=== PATIENT | male | born 1950 | race African-American/Black ===

== ENCOUNTER 2018-02-25 22:31 | Emergency (ER) | payer OTHER ==
--- NOTE | 2018-02-25 23:33 | RAD ---
RIGHT SHOULDER THREE VIEW: 02/25/18 HISTORY: Trauma. Fall. COMPARISON: None. FINDINGS: No acute fracture or malalignment. Moderate degenerative disease right acromioclavicular joint. Moder ate degenerative changes of the glenohumeral joint. IMPRESSION: Degenerative changes. No acute abnormality. POS: [facility]
--- NOTE | 2018-02-25 23:46 | CT ---
CT BRAIN WITHOUT CONTRAST: 02/25/18 HISTORY: Injury. Fall. COMPARISON: None. FINDINGS: No acute territorial infarct. No acute hemorrhage. Large right frontal forehead soft tissue contusion . Moderate atrophy and microvascular ischemic changes. The globes are intact. The calvarium is intact. Extensive mucosal sinus thickening left maxillary sinus. Mastoids are clear. IMPRESSION: Large forehead soft tissue contusion and hematoma. No acute intracranial abnormality. If the patient is on blood thinners or is at high risk for a parenchymal contusion, a followup CT in six hours would be recommended to evaluate for a late blooming contusion/hemorrhage. POS: [facility]
--- NOTE | 2018-02-25 23:55 | CT ---
CT CERVICAL SPINE WITHOUT CONTRAST 02/25/18 HISTORY: Trauma. Fall. COMPARISON: None. FINDINGS: Dysplastic changes of the mandibular condyles bilaterally. The odontoid process is intact. The occipi jacquie condyles are intact. Mastoids are clear. Skull base is intact. There is degenerative changes of C4-C7 with end plate height loss and sclerosis as well as erosions o f the end plates. Mild facet changes. No acute fracture or malalignment of the cervical spine. Mild scarring of the lung apices. Thyroid is unremarkable. No adenopathy. IMPRESSION: No acute displaced fracture of the cervical spine. POS: [facility]
[2018-02-26] MEDS ORDERED: Bacitracin Zinc 1 Packet ONE (01:59)
--- NOTE | 2018-02-26 07:06 | CT ---
CT FACE WITHOUT CONTRAST: HISTORY: Slip and fall, trauma. COMPARISON: None. FINDINGS: There is a large right forehead soft tissue contusion and hematoma with a small focus of gas. No fro ntal hematoma is appreciated. Medial orbital duran, lateral orbital duran, nasal bones, osseous nasal septum are intact. The yisel bular condyles are dysplastic. The patient is edentulous with wires to the left mandibular symphysis . Chronic mucosal sinus thickening in the left maxillary sinus. Orbital floors and orbital roofs are i ntact. IMPRESSION: Right forearm contusion and soft tissue gas. No fracture of the face. POS: [facility]
== END 2018-02-26 02:26 | disposition home or self-care (01) ==
LOC: ERS 22:31
DX: S00.83XA Contusion of other part of head, initial encounter (principal); W01.0XXA Fall on same level from slipping, tripping and stumbling without subsequent striking against object, initial encounter
CPT/HCPCS: 70450; 70486; 72125; 93005

== ENCOUNTER 2019-12-31 21:33 | Inpatient (IN) | payer MEDICARE, MEDICAID ==
[2019-12-31] MEDS ORDERED: Senokot S 8.6-50 MG TAB PO PRN (23:22)
[2019-12-31] MEDS ORDERED: Aspirin 325 MG TAB PO SCH (23:45)
--- NOTE | 2020-01-01 01:25 | HP ---
PRIMARY CARE PHYSICIAN: Dr. Newby. CHIEF COMPLAINT: Left-sided weakness, slurred speech, and left-sided droop. HISTORY OF PRESENT ILLNESS: Mr. Gomes is a very pleasant 69-year-old man who was a transfer to [facility] from [facility], where he was seen for evaluation of motor deficits to the left arm, left leg, and slurred speech. They were able to talk to his sister and his mother and his mom reports that he took a nap at 1400 and was normal, but when he woke up at 1600, she realized that he was slurring his speech and not moving his left side. He also urinated on himself. He reports he has a past medical history of hypertension and denies history of coronary artery disease or stroke in the past. His NIH at [place] was 13. They did a CT scan of the brain which was with no acute findings and a CTA which was also with no acute findings. ER physician at [place] did talk to Dr. Reid of Neurosurgery who also looked at the CT scans and assessed that no immediate mechanical interventions were needed. As he was outside of the window, he was not a candidate for tPA. He was evaluated, given an aspirin and then transferred to [facility] for admission and further workup. He will be admitted to the stroke unit for further testing and evaluation. REVIEW OF SYSTEMS: Patient reports dysphagia, reports focal weakness on his left side. Reports speech changes. He denies any abdominal pain, nausea, vomiting, diarrhea, fever, or chills. All systems reviewed and are negative unless mentioned in the HPI. PAST MEDICAL HISTORY: Pertinent for hypertension. PAST SURGICAL HISTORY: None. PSYCHIATRIC HISTORY: None. SOCIAL HISTORY: He drinks alcohol weekly. Drinks about a beer a day and does smoke about two cigarettes a day. FAMILY HISTORY: Noncontributory. ALLERGIES: NONE. MEDICATIONS: These still need to be reconciled. Per the ER record, he takes lisinopril 10 mg p.o. daily. PHYSICAL EXAMINATION: VITAL SIGNS: Blood pressure 153/102, pulse is 83, respirations 17, and patient is 100% on room air. CONSTITUTIONAL: Patient appears nontoxic. He does have a droop on the left side of his face. HEENT: His head is atraumatic and normocephalic. Eyes; pupils are equally round and reactive to light. ENT; mouth exam is normal. Mucous membranes are moist. NECK: No contusions or abrasions noted. Trachea is midline. RESPIRATORY/CHEST: Breath sounds are clear. Chest movement is symmetrical. CARDIOVASCULAR: Regular rate and rhythm. Heart sounds are normal. ABDOMEN: Nontender. Bowel sounds are heard. BACK: Normal range of motion. No tenderness. EXTREMITIES: Upper extremity, he has range of motion that is limited on the left, normal on the right. Sensation decreased on the left. Radial pulses are normal bilaterally. Lower extremity, decreased range of motion and strength on the left, normal on the right. Pedal pulses are normal. NEUROLOGIC: Speech is slurred. Pronator drift on the left, weakness of the left arm, weakness to the left hand, weakness also to the left leg. SKIN: Warm and dry, normal in color. LABORATORY DATA: EKG; nonspecific ST changes. [place] is right. Normal sinus rhythm, beats per minute 94. White blood cell count 7.1, hemoglobin 15.2, hematocrit is 44.9, and platelet count is 266. Coagulation studies within normal limits. Chemistry; sodium 134, potassium 3.6, chloride 102, carbon dioxide 19, gap is 17, BUN is 6, and creatinine is 0.95. Troponin x3 are undetectable, 0.029, 0.039. Globulin 3.7. PLAN/ASSESSMENT: 1. Left-sided weakness, slurred speech, left-sided droop. NIH scale 13. CT of the brain and CTA head and neck within normal limits. No acute findings were found. We will obtain an echocardiogram and order an MRI without contrast. We will ask PT/OT, Speech to evaluate. Considering the patient has new deficits which are not improving, we will ask Neurology to consult. Aspirin 325 was given in the ER in [place]. We will continue that daily. We will add Lipitor 80 mg p.o. at bedtime. 2. GI and deep venous thrombosis prophylaxis started. 3. History of hypertension. His medications need to be reconciled. We will restart once permissive hypertension is relaxed. We will get the results of the MRI. 4. Case was discussed with Dr. Rutherford, who agrees with plan. 5. Hospital course dependent on clinical findings. Job ID: [id number]
[2020-01-01] MEDS: Acetaminophen 325 MG TAB PO PRN ×3 (01:43→20:59)
[2020-01-01 01:52] LABS: Troponin I 0.039 ng/mL (< 0.028)
[2020-01-01 02:25] VITALS: BMI 22.4
[2020-01-01 05:01] LABS: #Eosinphils 0.1 thou/uL (0.0-0.7); #Lymphocytes 1.3 thou/uL (1.20-3.40); #Monocytes 0.5 thou/uL (0.11-0.59); #Neutrophils 4.3 thou/uL (1.40-6.50); %Basophils 0.6 % (0.0-1.0); %Eosinophils 1.1 % (0.0-10.0); %Lymphocytes 20.7 % (21.0-51.0); %Monocytes 8.2 % (0.0-10.0); %Neutrophils 69.4 % (42.0-75.0); Hemoglobin 14.4 g/dL (14.0-18.0); Mean Corpuscular HGB CONC 35.1 g/dL (32.0-36.0); Mean Corpuscular Hemoglobin 34.6 pg (27.0-31.0); Mean Corpuscular Volume 98.5 fL (78.0-98.0); Mean Platelet Volume 7.9 fL (7.4-10.4); Platelet Count 260 thou/uL (130-400); RBC Distribution Width 14.9 % (11.5-14.5); Red Blood Cell (RBC) Count 4.17 mill/uL (4.70-6.10); White Blood Cell (WBC) Count 6.1 thou/uL (4.8-10.8)
[2020-01-01 05:26] LABS: ALT (SGPT) Less than 7 U/L (8-55); AST (SGOT) 13 U/L (5-34); Albumin 3.7 g/dL (3.4-4.8); Alkaline Phosphatase 85 U/L (40-110); Anion Gap 12 mmol/L (10-20); BUN (Urea Nitrogen) 6 mg/dL (8.4-25.7); Bilirubin, Total 0.6 mg/dL (0.2-1.2); Calc. Creatinine Clearance 84 mL/min (70-130); Calcium 9.4 mg/dL (7.8-10.44); Carbon Dioxide 22 mmol/L (23-31); Cardiac Risk 3.2 (Less than 4.5); Chloride 104 mmol/L (98-107); Cholesterol 189 mg/dl (< 200 Desired); Estimated GFR-MDRD Greater than 90; Globulin 3.4 g/dL (2.4-3.5); Glucose 98 mg/dL (80-115); HDL Cholesterol 59 mg/dL (>60 Neg Risk); LDL Cholesterol, Calculated 115 mg/dL; Potassium 3.4 mmol/L (3.5-5.1); Protein, Total 7.1 g/dL (5.8-8.1); Sodium 135 mmol/L (136-145); Triglycerides 73 mg/dL (Less than 150)
[2020-01-01] MEDS ORDERED: Morphine 2 MG/ML SYRINGE SLOW IVP SCH (06:45)
[2020-01-01 07:46] LABS: Troponin I 0.043 ng/mL (< 0.028)
--- NOTE | 2020-01-01 10:31 | PDOC.HOSPP ---
- Subjective Encounter Date: 01/01/20 Encounter Time: 10:00 Subjective: does not move his left side, has dysarthria wants to eat no difficulty breathing - Objective Vital Signs & Weight: Vital Signs (12 hours) Temp Pulse Resp BP Pulse Ox 01/01/20 08:00 98.4 F 100 20 131/93 H 100 01/01/20 04:00 98.5 F 84 18 130/78 98 12/31/19 23:40 98.3 F 86 18 148/99 H 98 Weight Weight 161 lb 2 oz I&O: 12/31/19 01/01/20 01/02/20 06:59 06:59 06:59 Intake Total 30 Balance 30 Result Diagrams: 01/01/20 04:39 01/01/20 04:39 Hospitalist ROS - Medication Medications: Active Medications Generic Name Dose Route Start Last Admin Trade Name Freq PRN Reason Stop Dose Admin Acetaminophen 650 mg 12/31/19 23:22 01/01/20 01:43 Tylenol PO 650 mg Q4H PRN Administration Headache/Fever/Mild Pain (1-3) - Exam General Appearance: awake alert Eye: PERRL, anicteric sclera ENT: no oropharyngeal lesions, dry oral mucosa Neck: supple, no JVD Heart: RRR, no murmur Respiratory: no wheezes, no rales Gastrointestinal: soft, non-tender, non-distended, normal bowel sounds Extremities: no cyanosis, no edema Neurological: hemiplegia, speech deficit Hosp A/P (1) Acute CVA (cerebrovascular accident) Code(s): I63.9 - CEREBRAL INFARCTION, UNSPECIFIED Status: Acute (2) H/O rheumatoid arthritis Code(s): Z87.39 - PERSONAL HISTORY OF DISEASES OF THE MS SYS AND CONN TISS Status: Chronic (3) HTN (hypertension) Code(s): I10 - ESSENTIAL (PRIMARY) HYPERTENSION Status: Chronic Qualifiers: Hypertension type: essential hypertension Qualified Code(s): I10 - Essential (primary) hypertension (4) Dyslipidemia Code(s): E78.5 - HYPERLIPIDEMIA, UNSPECIFIED Status: Chronic - Plan is on asp, lipitor, htn meds are held for now due to ac cva await mri and echo results he has been dragging his left LE from 1 yr due to RA per mother, but his left UE weakness and slurred speech is new hemo/neurostable will switch to inpatient status
--- NOTE | 2020-01-01 11:11 | MRI ---
Exam: Brain MRI without contrast HISTORY: Slurred speech. Left-sided weakness. Confusion. COMPARISON: None FINDINGS: Limited evaluation due to motion degradation on multiple sequences Calvarial marrow signal intensity: Appropriate T1 signal Gradient echo sequence: No hemorrhage Brain parenchyma: No mass, mass effect or midline shift. Brain volume, age-appropriate. Cortical hagan-white matter differentiation: Preserved Restricted diffusion: Central arterial flow voids are maintained. There is restricted diffusion invol ving the left occipital parietal cortex. Additional restricted diffusion involving the posterior limb of the right internal capsule. White matter signal intensities: T2, FLAIR white matter hyperintensities due to chronic small vessel ischemic changes Sinuses: Adequate aeration of the paranasal sinuses and mastoid air cells. IMPRESSION: 1. Restricted diffusion involving the posterior limb of the right internal capsule and left occipitop arietal cortex.
[2020-01-01] MEDS: Aspirin 325 mg Enteric Coated Tablet PO SCH ×2 (12:38→12:49)
[2020-01-01] MEDS: Enoxaparin Sodium 40 MG/0.4 ML SYRINGE SC SCH ×2 (12:38→12:43)
[2020-01-01] MEDS: Famotidine 20 MG TAB PO SCH ×3 (12:38→20:59)
[2020-01-01] MEDS: Aspirin 325 MG TAB PO SCH ×2 (12:45→12:49)
[2020-01-01] MEDS ORDERED: Clopidogrel Bisulfate 75 MG TAB PO SCH (14:30)
--- NOTE | 2020-01-01 15:34 | CON ---
DATE OF CONSULTATION: 01/01/2020 CONSULTING PHYSICIAN: Hospitalist Service. IMPRESSION: 1. Lacunar strokes off the basilar distribution. 2. Undiagnosed hypertension. 3. Aspirin failure. PLAN: 1. Add Plavix. 2. Address hypertension. 3. Rehab screening. HISTORY OF PRESENT ILLNESS: Mr. Gomes is a 69-year-old man from [place], who came in with acute onset of left hemiparesis. He was outside the window for any type of treatment otherwise. His MRI revealed evidence of right internal capsule and left posterior parieto-occipital areas of infarction. His echocardiogram showed a normal ejection fraction of 55% to 60%. He is currently in a sinus tachycardia. There is no known history of atrial fibrillation. He has been a bit hypertensive with diastolics in the mid 90s. His deficits have not improved, but he denies a past history of stroke. He reports being compliant with aspirin prior to admission. He has been started on Lipitor. He was also taking oxycodone. PAST HISTORY: Otherwise negative. ALLERGIES: NONE. SOCIAL HISTORY: Minimal tobacco use. Minimal alcohol use reported. FAMILY HISTORY: Noncontributory. REVIEW OF SYSTEMS: Ten-system review of systems is otherwise negative. PHYSICAL EXAMINATION: GENERAL: He is a reasonably well-nourished, middle-aged man, in no distress. VITAL SIGNS: Blood pressure 180/96, pulse 101, respirations 18, and temperature 98.7. HEENT: Pupils equal. Conjunctivae clear. Oropharynx clear. NECK: Supple. EXTREMITIES: No cyanosis. NEUROLOGIC: He was awake and cooperative. He was disoriented to place and time. He followed commands and answered questions. There was no notable dysarthria. No facial asymmetry was appreciated. He has a dense left hemipareses. Sensory testing was intact to touch. No abnormal movements were seen. Gait was not testable. LABORATORY STUDIES: Unremarkable CBC and chemistry panel. His heart risk ratio was 3.2. TSH was in normal range. IMAGING STUDIES: Reviewed. SUMMARY: A 69-year-old man with areas of infarction off the basilar distribution, suggesting the possibility of possible cardioembolic event. Outpatient monitoring to rule out intermittent atrial fibrillation would be a reasonable idea. I would continue antiplatelet therapy with aspirin and Plavix for the time being. His blood pressure needs to be brought under control. Job ID: [id number]
[2020-01-01] MEDS ORDERED: Aspirin 325 MG TAB PO SCH (16:00)
[2020-01-01] MEDS ORDERED: Famotidine 20 MG TAB PO SCH (16:15)
[2020-01-01] MEDS: Atorvastatin Calcium 40 MG TAB PO SCH (20:59)
[2020-01-01] MEDS: Clopidogrel Bisulfate 75 MG TAB PO SCH (21:00)
[2020-01-02] MEDS: Acetaminophen 325 MG TAB PO PRN (04:28)
[2020-01-02] MEDS: Enoxaparin Sodium 40 MG/0.4 ML SYRINGE SC SCH (08:34)
[2020-01-02] MEDS: Clopidogrel Bisulfate 75 MG TAB PO SCH ×2 (08:34→21:38)
[2020-01-02] MEDS: Famotidine 20 MG TAB PO SCH ×2 (08:34→21:38)
[2020-01-02] MEDS ORDERED: Aspirin 325 MG TAB PO SCH (09:00)
--- NOTE | 2020-01-02 09:57 | PDOC.HOSPP ---
- Subjective Encounter Date: 01/02/20 Encounter Time: 09:30 Subjective: awake, no new complaints still has paralysis in his right side and is holding his right knee in flexed position (says its been that way from 1 yr) - Objective Vital Signs & Weight: Vital Signs (12 hours) Temp Pulse Resp BP Pulse Ox 01/02/20 07:09 98.5 F 109 H 22 H 163/102 H 100 01/02/20 04:00 98.2 F 100 18 146/81 H 97 01/02/20 00:00 98.4 F 114 H 18 157/79 H 97 Weight Weight 161 lb 2 oz I&O: 01/01/20 01/02/20 01/03/20 06:59 06:59 06:59 Intake Total 30 140 Balance 30 140 Result Diagrams: 01/01/20 04:39 01/01/20 04:39 Hospitalist ROS - Medication Medications: Active Medications Generic Name Dose Route Start Last Admin Trade Name Freq PRN Reason Stop Dose Admin Acetaminophen 650 mg 12/31/19 23:22 01/02/20 04:28 Tylenol PO 650 mg Q4H PRN Administration Headache/Fever/Mild Pain (1-3) Atorvastatin Calcium 80 mg 01/01/20 21:00 01/01/20 20:59 Lipitor PO 80 mg HS MITHCELL Administration Clopidogrel Bisulfate 75 mg 01/01/20 21:00 01/02/20 08:34 Plavix PO 75 mg BID MITCHELL Administration Enoxaparin Sodium 40 mg 01/01/20 09:00 01/02/20 08:34 Lovenox SC 40 mg 0900 MITCHELL Administration Famotidine 20 mg 01/01/20 09:00 01/02/20 08:34 Pepcid PO 20 mg BID MITCHELL Administration Sodium Chloride 10 ml 12/31/19 23:22 01/01/20 21:00 Flush - Normal Saline IVF 10 ml PRN PRN Administration Saline Flush - Exam General Appearance: awake alert Eye: PERRL, anicteric sclera ENT: no oropharyngeal lesions, moist mucosa Neck: supple, no JVD Heart: RRR, no murmur Respiratory: no wheezes, no rales Gastrointestinal: soft, non-tender, non-distended, normal bowel sounds Extremities: no cyanosis, no edema Neurological: hemiplegia, speech deficit Psychiatric: normal affect, A&O x 3 Hosp A/P (1) Acute CVA (cerebrovascular accident) Code(s): I63.9 - CEREBRAL INFARCTION, UNSPECIFIED Status: Acute (2) H/O rheumatoid arthritis Code(s): Z87.39 - PERSONAL HISTORY OF DISEASES OF THE MS SYS AND CONN TISS Status: Chronic (3) HTN (hypertension) Code(s): I10 - ESSENTIAL (PRIMARY) HYPERTENSION Status: Chronic Qualifiers: Hypertension type: essential hypertension Qualified Code(s): I10 - Essential (primary) hypertension (4) Dyslipidemia Code(s): E78.5 - HYPERLIPIDEMIA, UNSPECIFIED Status: Chronic - Plan is on asp, lipitor, htn meds are held for now due to ac cva MRI shows right Internal capsule and left parieto-occipital infarct he has been dragging his left LE from 1 yr due to RA per mother, but his left UE weakness and slurred speech is new hemo/neurostable cardiology consult for possible ENMANUEL, ?event monitor to r/o afib. Is in sinus rhythm here. needs rehab for dc plan
[2020-01-02] MEDS: HYDROcodone/Acetaminophen 5/325 mg Tablet PO PRN ×3 (11:06→21:38)
--- NOTE | 2020-01-02 13:41 | CON ---
DATE OF CONSULTATION: 01/02/2020 REASON FOR CONSULTATION: CVA. HISTORY OF PRESENT ILLNESS: Mr. Gomes is a very pleasant 69-year-old gentleman, who comes to the hospital, transferred from the [place] [facility] for stroke. He had deficits in the left arm and left leg as well as difficulty with speech. MRI of the brain showed evidence of acute CVAs in the posterior limb of the right internal capsule and left occipitoparietal cortex, so Cardiology has been consulted to see if this is a cardioembolic phenomenon. Mr. Gomes denies having any heart issues in the past, except for high blood pressure. PAST MEDICAL HISTORY: Hypertension PAST SURGICAL HISTORY: None. SOCIAL HISTORY: Drinks alcohol every week, about a beer every day. He smokes about two cigarettes every day. FAMILY HISTORY: Noncontributory. OUTPATIENT MEDICATIONS: Lisinopril 10 mg a day, however, he is probably not taking any of this. ALLERGIES: NO KNOWN DRUG ALLERGIES. REVIEW OF SYSTEMS: Unobtainable as the patient is unable to communicate that well. PHYSICAL EXAMINATION: VITAL SIGNS: Temperature 97.9, pulse 95, respiratory rate 20, sat 98% on room air, blood pressure 145/87. GENERAL: Awake, alert, in no distress. HEENT: Normocephalic, atraumatic. NECK: Supple. LUNGS: Clear. CARDIOVASCULAR: S1, S2. No S3 or S4. No murmurs. ABDOMEN: Soft, positive bowel sounds. EXTREMITIES: No edema. SKIN: Warm and dry. LABORATORY DATA: Laboratory work was reviewed. White count of 6, hemoglobin of 14, hematocrit 41, platelet count 260. Chemistry, sodium 135, potassium 3.4, chloride 104, carbon dioxide of 22, anion gap of 12, BUN of 6, creatinine 0.88, GFR greater than 90. Troponin was 0.03, 0.03, and 0.04. Triglycerides of 73. Cholesterol total 189, LDL of 115, HDL of 59. TSH was normal. EKG was reviewed, no issues. Telemetry has been sinus rhythm. MRI of the brain was reviewed. Echocardiogram showed an EF of 55% to 60%, LVH, trace MR. ASSESSMENT: 1. Acute cerebrovascular accident, likely cardioembolic. 2. Hypertension, not well controlled. PLAN: 1. We will need to evaluate for arrhythmias like atrial fibrillation and atrial flutter with an implantable loop recorder. I spoke with Siri Gomes her mother who is the next of kin about possibly doing this as Mr. Vito Gomes is not able to consent. We spoke with her and she is very interested in having this loop recorder placed to evaluate for these type of rhythms that can cause a stroke. We will plan on inserting this LINQ implantable loop recorder later today. 2. Otherwise, we will also do a bubble study. Thank you for letting us participate in the care of your patient, we will follow. Job ID: [id number]
[2020-01-02] MEDS: Senokot S 8.6-50 MG TAB PO SCH (21:37)
[2020-01-02] MEDS: Atorvastatin Calcium 40 MG TAB PO SCH (21:38)
[2020-01-02] MEDS: Docusate 100 MG CAP PO SCH (22:00)
--- NOTE | 2020-01-03 08:58 | RAD ---
Exam: Chest one view HISTORY:Evaluate for infiltrate Comparison: None FINDINGS: Cardiac silhouette: Normal Aorta: Unremarkable Pulmonary vessels: Normal Costophrenic angles: Clear LUNGS: Patchy interstitial opacities. Possible calcified granuloma in the left perihilar region and r ight lung base. Better interrogation with chest CT is recommended. Pneumothorax: None Osseous abnormalities: None IMPRESSION: 1. Lung parenchymal nodules as described above. 2. Patchy interstitial opacities. 3. Better interrogation with chest CT
[2020-01-03] MEDS: Enoxaparin Sodium 40 MG/0.4 ML SYRINGE SC SCH (09:26)
[2020-01-03] MEDS: Clopidogrel Bisulfate 75 MG TAB PO SCH (09:27)
[2020-01-03] MEDS: Senokot S 8.6-50 MG TAB PO SCH (09:27)
[2020-01-03] MEDS: Famotidine 20 MG TAB PO SCH ×2 (09:28→21:31)
[2020-01-03] MEDS: Docusate 100 MG CAP PO SCH ×2 (09:28→21:32)
[2020-01-03] MEDS: NIFEdipine XL 60 MG TAB PO SCH (09:28)
[2020-01-03] MEDS: HYDROcodone/Acetaminophen 5/325 mg Tablet PO PRN (09:31)
[2020-01-03] MEDS ORDERED: Lidocaine 1% w/Epinephrine 1:100K 20 ML VIAL ONE (10:31)
--- NOTE | 2020-01-03 15:07 | PDOC.HOSPP ---
- Subjective Encounter Date: 01/03/20 Encounter Time: 11:00 Subjective: awake, no sob tries to interact verbally, follows well - Objective Vital Signs & Weight: Vital Signs (12 hours) Temp Pulse Pulse Pulse Resp BP BP 01/03/20 14:10 115 H 01/03/20 12:10 110 H 115/64 01/03/20 11:37 99.4 F 107 H 20 01/03/20 09:28 105 H 146/91 H 01/03/20 08:00 97.5 F L 105 H 19 01/03/20 04:00 98.8 F 106 H 18 BP BP Pulse Ox 01/03/20 14:10 129/84 01/03/20 12:10 01/03/20 11:37 122/70 95 01/03/20 09:28 01/03/20 08:00 146/91 H 96 01/03/20 04:00 175/102 H 96 Weight Admit Weight 161 lb 2 oz Weight 161 lb 2 oz I&O: 01/02/20 01/03/20 01/04/20 06:59 06:59 06:59 Intake Total 140 120 280 Output Total 125 Balance 140 120 155 Result Diagrams: 01/01/20 04:39 01/01/20 04:39 Hospitalist ROS - Medication Medications: Active Medications Generic Name Dose Route Start Last Admin Trade Name Freq PRN Reason Stop Dose Admin Acetaminophen 650 mg 12/31/19 23:22 01/02/20 04:28 Tylenol PO 650 mg Q4H PRN Administration Headache/Fever/Mild Pain (1-3) Hydrocodone Bitart/Acetaminophen 1 tab 01/02/20 10:42 01/03/20 09:31 [place] 5/325 PO 1 tab Q4H PRN Administration mild to moderate pain Atorvastatin Calcium 80 mg 01/01/20 21:00 01/02/20 21:38 Lipitor PO 80 mg HS MITCHELL Administration Docusate Sodium 100 mg 01/02/20 21:00 01/03/20 09:28 Colace PO 100 mg BID MITCHELL Administration Enoxaparin Sodium 40 mg 01/01/20 09:00 01/03/20 09:26 Lovenox SC 40 mg 0900 MITCHELL Administration Famotidine 20 mg 01/01/20 09:00 01/03/20 09:28 Pepcid PO 20 mg BID MITCHELL Administration Nifedipine 60 mg 01/03/20 09:00 01/03/20 09:28 Procardia Xl PO 60 mg DAILY MITCHELL Administration Senna/Docusate Sodium 2 tab 01/02/20 21:00 01/03/20 09:27 Senokot S PO 2 tab BID MITCHELL Administration Sodium Chloride 10 ml 12/31/19 23:27 01/02/20 21:52 Flush - Normal Saline IVF 10 ml PRN PRN Administration Saline Flush - Exam General Appearance: awake alert, ill appearing Eye: PERRL, anicteric sclera ENT: no oropharyngeal lesions, moist mucosa Neck: supple, no JVD Heart: RRR, no murmur Respiratory: no wheezes, no rales, rhonchi Gastrointestinal: soft, non-tender, non-distended, normal bowel sounds Extremities: no cyanosis, no edema Neurological: hemiplegia, speech deficit Psychiatric: normal affect, A&O x 3 Hosp A/P (1) Acute CVA (cerebrovascular accident) Code(s): I63.9 - CEREBRAL INFARCTION, UNSPECIFIED Status: Acute (2) H/O rheumatoid arthritis Code(s): Z87.39 - PERSONAL HISTORY OF DISEASES OF THE MS SYS AND CONN TISS Status: Chronic (3) HTN (hypertension) Code(s): I10 - ESSENTIAL (PRIMARY) HYPERTENSION Status: Chronic Qualifiers: Hypertension type: essential hypertension Qualified Code(s): I10 - Essential (primary) hypertension (4) Dyslipidemia Code(s): E78.5 - HYPERLIPIDEMIA, UNSPECIFIED Status: Chronic - Plan is on plavix, lipitor, procardia xl MRI shows right Internal capsule and left parieto-occipital infarct he has been dragging his left LE from 1 yr due to RA per mother, but his left UE weakness and slurred speech is new hemo/neurostable For Linq monitor today to snf in am if stable and no fever aspiration precautions
[2020-01-03] MEDS ORDERED: Lorazepam 2 MG/ML VIAL SLOW IVP PRN (15:34)
[2020-01-03] MEDS: Atorvastatin Calcium 40 MG TAB PO SCH (21:32)
[2020-01-04] MEDS: Famotidine 20 MG TAB PO SCH ×2 (08:45→22:38)
[2020-01-04] MEDS: Enoxaparin Sodium 40 MG/0.4 ML SYRINGE SC SCH (08:45)
[2020-01-04] MEDS: Clopidogrel Bisulfate 75 MG TAB PO SCH (08:45)
[2020-01-04] MEDS: Docusate 100 MG CAP PO SCH ×2 (08:45→22:38)
[2020-01-04] MEDS: NIFEdipine XL 60 MG TAB PO SCH (08:46)
[2020-01-04] MEDS: Senokot S 8.6-50 MG TAB PO SCH ×2 (08:46→22:37)
--- NOTE | 2020-01-04 12:34 | PDOC.HOSPP ---
- Subjective Encounter Date: 01/04/20 Encounter Time: 09:00 Subjective: awake, not in distress responds well to verbal stimuli - Objective Vital Signs & Weight: Vital Signs (12 hours) Temp Pulse Resp BP BP BP Pulse Ox 01/04/20 11:15 98.7 F 118 H 20 139/79 94 L 01/04/20 08:46 110 H 145/90 H 01/04/20 07:10 97.5 F L 110 H 20 145/90 H 97 01/04/20 04:00 98.3 F 116 H 18 134/91 H 97 Weight Admit Weight 161 lb 2 oz Weight 161 lb 2 oz I&O: 01/03/20 01/04/20 01/05/20 06:59 06:59 06:59 Intake Total 120 280 300 Output Total 125 Balance 120 155 300 Result Diagrams: 01/01/20 04:39 01/01/20 04:39 Hospitalist ROS - Medication Medications: Active Medications Generic Name Dose Route Start Last Admin Trade Name Freq PRN Reason Stop Dose Admin Acetaminophen 650 mg 12/31/19 23:22 01/02/20 04:28 Tylenol PO 650 mg Q4H PRN Administration Headache/Fever/Mild Pain (1-3) Hydrocodone Bitart/Acetaminophen 1 tab 01/02/20 10:42 01/03/20 09:31 [place] 5/325 PO 1 tab Q4H PRN Administration mild to moderate pain Atorvastatin Calcium 80 mg 01/01/20 21:00 01/03/20 21:32 Lipitor PO 80 mg HS MITCHELL Administration Clopidogrel Bisulfate 75 mg 01/04/20 09:00 01/04/20 08:45 Plavix PO 75 mg 0900 MITCHELL Administration Docusate Sodium 100 mg 01/02/20 21:00 01/04/20 08:45 Colace PO 100 mg BID MITCHELL Administration Enoxaparin Sodium 40 mg 01/01/20 09:00 01/04/20 08:45 Lovenox SC 40 mg 0900 MITCHELL Administration Famotidine 20 mg 01/01/20 09:00 01/04/20 08:45 Pepcid PO 20 mg BID MITCHELL Administration Lorazepam 1 mg 01/03/20 15:34 01/03/20 16:13 Ativan SLOW IVP 1 mg Q4H PRN Administration Anxiety/Agitation Nifedipine 60 mg 01/03/20 09:00 01/04/20 08:46 Procardia Xl PO 60 mg DAILY MITCHELL Administration Senna/Docusate Sodium 2 tab 01/02/20 21:00 01/04/20 08:46 Senokot S PO 2 tab BID MITCHELL Administration Sodium Chloride 10 ml 12/31/19 23:27 01/02/20 21:52 Flush - Normal Saline IVF 10 ml PRN PRN Administration Saline Flush - Exam General Appearance: awake alert Eye: PERRL, anicteric sclera ENT: no oropharyngeal lesions, moist mucosa Neck: supple, no JVD Heart: RRR, no murmur Respiratory: no wheezes, no rales Gastrointestinal: soft, non-tender, non-distended, normal bowel sounds Extremities: no cyanosis, no edema Neurological: hemiplegia, speech deficit Hosp A/P (1) Acute CVA (cerebrovascular accident) Code(s): I63.9 - CEREBRAL INFARCTION, UNSPECIFIED Status: Acute (2) H/O rheumatoid arthritis Code(s): Z87.39 - PERSONAL HISTORY OF DISEASES OF THE MS SYS AND CONN TISS Status: Chronic (3) HTN (hypertension) Code(s): I10 - ESSENTIAL (PRIMARY) HYPERTENSION Status: Chronic Qualifiers: Hypertension type: essential hypertension Qualified Code(s): I10 - Essential (primary) hypertension (4) Dyslipidemia Code(s): E78.5 - HYPERLIPIDEMIA, UNSPECIFIED Status: Chronic - Plan is on plavix, lipitor, procardia xl MRI shows right Internal capsule and left parieto-occipital infarct he has been dragging his left LE from 1 yr due to RA per mother, but his left UE weakness and slurred speech is new hemo/neurostable had Linq monitor to snf today aspiration precautions
--- NOTE | 2020-01-04 17:02 | DIS ---
DATE OF ADMISSION: 01/01/2020 DATE OF DISCHARGE: 01/04/2020 PRIMARY DISCHARGE DIAGNOSES: Acute cerebrovascular accident with left hemiplegia and acute infarct in the right internal capsule and left parieto-occipital area. SECONDARY DISCHARGE DIAGNOSES: History of rheumatoid arthritis, not on any medications now; hypertension; dyslipidemia; status post LINQ monitor placed to rule out arrhythmias. PROCEDURES DONE DURING HOSPITALIZATION: Echo with 2D Doppler done showed an EF of 55% to 60%. There was mild concentric LVH. Left atrial size was normal. MRI brain showed restricted diffusion involving posterior limb of right internal capsule and left occipitoparietal cortex. H and H 14 and 41, platelet count 260, and MCV is 98. BUN 6, creatinine 0.8, total cholesterol 189, triglycerides 73, LDL 115, HDL 59, and TSH 1.9. DISCHARGE MEDICATIONS: 1. Oxycodone 13.5 mg p.o. twice daily. 2. Lipitor 80 mg p.o. at bedtime. 3. Plavix 75 mg p.o. daily. 4. Pepcid 20 mg p.o. twice daily. 5. Procardia XL 60 mg p.o. daily. 6. Senokot-S 2 tablets p.o. twice daily. ALLERGIES: NO KNOWN DRUG ALLERGIES. DISCHARGE PLAN: The patient to follow up with Dr. Lucio in 2 to 3 weeks and his primary care physician in 1 week. The primary care physician on record is Dr. Isabel Newby. BRIEF COURSE DURING HOSPITALIZATION: The patient initially came in with history of left-sided weakness and slurred speech. NIH was 13. The patient was outside window for tPA. He has had MRI of brain done, which showed infarcts on both sites of his brain as explained above. In view of this, Cardiology consultation with Dr. Zimmer was requested. The patient has been in sinus rhythm all through his stay here. He has had a LINQ monitor placed, which will be closely monitored for any arrhythmias. He was on aspirin prior to arrival here and has been placed on Plavix. No anticoagulation was given as the patient is in sinus rhythm. He has left hemiplegia with slight movement in his left lower extremity. The patient has severe rheumatoid arthritis clinically and needs to see a traffic control operator in 3 to 4 weeks for possible medications for the same. He is on a pureed diet. He is eating around 40% to 50% of his diet. He needs more encouragement and help with feeding. He is otherwise neurologically stable and hemodynamically stable for discharge. He has been accepted to [facility] and will be discharged once his family completes the paperwork. A total of 35 minutes was spent on discharge plan. Please see a [id number] documentation for the day of discharge. Job ID: [id number]
--- NOTE | 2020-01-04 17:54 | PDOC.CPN ---
- Subjective Date: 01/04/20 Time: 17:53 Interval history: No new issues. LINQ insertion site looks as expected. - Review of Systems ROS unobtainable: due to mental status - Objective Allergies/Adverse Reactions: Allergies Allergy/AdvReac Type Severity Reaction Status Date / Time No Known Drug Allergies Allergy Verified 01/01/20 00:40 Visit Medications: Current Medications Acetaminophen (Tylenol) 650 mg PO Q4H PRN PRN Reason: Headache/Fever/Mild Pain (1-3) Last Admin: 01/02/20 04:28 Dose: 650 mg Hydrocodone Bitart/Acetaminophen ([place] 5/325) 1 tab PO Q4H PRN PRN Reason: mild to moderate pain Last Admin: 01/03/20 09:31 Dose: 1 tab Atorvastatin Calcium (Lipitor) 80 mg PO HS [facility] Last Admin: 01/03/20 21:32 Dose: 80 mg Clopidogrel Bisulfate (Plavix) 75 mg PO 0900 [facility] Last Admin: 01/04/20 08:45 Dose: 75 mg Docusate Sodium (Colace) 100 mg PO BID [facility] Last Admin: 01/04/20 08:45 Dose: 100 mg Enoxaparin Sodium (Lovenox) 40 mg SC 0900 [facility] Last Admin: 01/04/20 08:45 Dose: 40 mg Famotidine (Pepcid) 20 mg PO BID [facility] Last Admin: 01/04/20 08:45 Dose: 20 mg Lorazepam (Ativan) 1 mg SLOW IVP Q4H PRN PRN Reason: Anxiety/Agitation Last Admin: 01/03/20 16:13 Dose: 1 mg Nifedipine (Procardia Xl) 60 mg PO DAILY [facility] Last Admin: 01/04/20 08:46 Dose: 60 mg Senna/Docusate Sodium (Senokot S) 2 tab PO BID [facility] Last Admin: 01/04/20 08:46 Dose: 2 tab Sodium Chloride (Flush - Normal Saline) 10 ml IVF PRN PRN PRN Reason: Saline Flush Last Admin: 01/02/20 21:52 Dose: 10 ml Vital Signs & Weight: Vital Signs Temp Pulse Resp BP BP BP Pulse Ox 01/04/20 15:19 97.5 F L 115 H 20 144/88 H 96 01/04/20 11:15 98.7 F 118 H 20 139/79 94 L 01/04/20 08:46 110 H 145/90 H 01/04/20 07:10 97.5 F L 110 H 20 145/90 H 97 Admit Weight 161 lb 2 oz Weight 161 lb 2 oz - Medication Contraindications No Anticoagulant reason: Treatment not indicated - Physical Exam General: no apparent distress HEENT: mucus membranes moist Neck: supple neck Cardiac: regular rate and rhythm Lungs: normal breath sounds Neuro: weakness Abdomen: active bowel sounds Extremities: no edema Skin: clear Musculoskeletal: no pain - Labs Result Diagrams: 01/01/20 04:39 01/01/20 04:39 Troponin/CKMB Troponin I 0.043 ng/mL (< 0.028) H 01/01/20 04:39 - Telemetry Sinus rhythms and dysrhythmias: sinus rhythm - Assessment/Plan Assessment/Plan: 1. Acute CVA 2. HTN PLAN: - Continue Monitoring via ILR (LINQ) - Will scheduled follow up in the office. May discharge at any point from cardiac perspective.
[2020-01-04] MEDS: Atorvastatin Calcium 40 MG TAB PO SCH (22:37)
[2020-01-04] MEDS: HYDROcodone/Acetaminophen 5/325 mg Tablet PO PRN (23:21)
[2020-01-05] MEDS ORDERED: Hydrochlorothiazide 25 MG TAB PO SCH (09:00)
[2020-01-05] MEDS: Docusate 100 MG CAP PO SCH (09:49)
[2020-01-05] MEDS: Enoxaparin Sodium 40 MG/0.4 ML SYRINGE SC SCH (09:49)
[2020-01-05] MEDS: Clopidogrel Bisulfate 75 MG TAB PO SCH (09:50)
[2020-01-05] MEDS: HYDROcodone/Acetaminophen 5/325 mg Tablet PO PRN (09:50)
[2020-01-05] MEDS: NIFEdipine XL 60 MG TAB PO SCH (09:52)
[2020-01-05] MEDS: Senokot S 8.6-50 MG TAB PO SCH (09:52)
[2020-01-05] MEDS: Famotidine 20 MG TAB PO SCH (09:52)
--- NOTE | 2020-01-05 10:23 | PDOC.HOSPP ---
- Subjective Encounter Date: 01/05/20 Encounter Time: 09:15 Subjective: awake, not in distress moves his right extremities, follows verbal stimuli, wants to drink water - Objective Vital Signs & Weight: Vital Signs (12 hours) Temp Pulse Resp BP BP BP Pulse Ox 01/05/20 09:52 95 130/88 01/05/20 07:52 97.3 F L 100 17 137/81 96 01/05/20 03:55 98.1 F 18 162/94 H 95 01/04/20 23:52 98 F 120 H 20 182/100 H 95 Weight Admit Weight 161 lb 2 oz Weight 161 lb 2 oz I&O: 01/04/20 01/05/20 01/06/20 06:59 06:59 06:59 Intake Total 280 900 Output Total 125 Balance 155 900 Result Diagrams: 01/01/20 04:39 01/01/20 04:39 Hospitalist ROS - Medication Medications: Active Medications Generic Name Dose Route Start Last Admin Trade Name Freq PRN Reason Stop Dose Admin Acetaminophen 650 mg 12/31/19 23:22 01/02/20 04:28 Tylenol PO 650 mg Q4H PRN Administration Headache/Fever/Mild Pain (1-3) Hydrocodone Bitart/Acetaminophen 1 tab 01/02/20 10:42 01/05/20 09:50 [place] 5/325 PO 1 tab Q4H PRN Administration mild to moderate pain Atorvastatin Calcium 80 mg 01/01/20 21:00 01/04/20 22:37 Lipitor PO 80 mg HS MITCHELL Administration Clopidogrel Bisulfate 75 mg 01/04/20 09:00 01/05/20 09:50 Plavix PO 75 mg 0900 MITCHELL Administration Docusate Sodium 100 mg 01/02/20 21:00 01/05/20 09:49 Colace PO 100 mg BID MITCHELL Administration Enoxaparin Sodium 40 mg 01/01/20 09:00 01/05/20 09:49 Lovenox SC 40 mg 0900 MITCHELL Administration Famotidine 20 mg 01/01/20 09:00 01/05/20 09:52 Pepcid PO 20 mg BID MITCHELL Administration Hydrochlorothiazide 25 mg 01/05/20 09:00 01/05/20 09:52 Hydrochlorothiazide PO 25 mg DAILY MITCHELL Administration Lorazepam 1 mg 01/03/20 15:34 01/03/20 16:13 Ativan SLOW IVP 1 mg Q4H PRN Administration Anxiety/Agitation Nifedipine 60 mg 01/03/20 09:00 01/05/20 09:52 Procardia Xl PO 60 mg DAILY IMTCHELL Administration Senna/Docusate Sodium 2 tab 01/02/20 21:00 01/05/20 09:52 Senokot S PO 2 tab BID MITCHELL Administration Sodium Chloride 10 ml 12/31/19 23:27 01/02/20 21:52 Flush - Normal Saline IVF 10 ml PRN PRN Administration Saline Flush - Exam General Appearance: awake alert Eye: PERRL, anicteric sclera ENT: no oropharyngeal lesions, moist mucosa Neck: supple, no JVD Heart: RRR, no murmur Respiratory: no wheezes, no rales, rhonchi Gastrointestinal: soft, non-tender, non-distended, normal bowel sounds Extremities: no cyanosis, no edema Neurological: hemiplegia, speech deficit Hosp A/P (1) Acute CVA (cerebrovascular accident) Code(s): I63.9 - CEREBRAL INFARCTION, UNSPECIFIED Status: Acute (2) H/O rheumatoid arthritis Code(s): Z87.39 - PERSONAL HISTORY OF DISEASES OF THE MS SYS AND CONN TISS Status: Chronic (3) HTN (hypertension) Code(s): I10 - ESSENTIAL (PRIMARY) HYPERTENSION Status: Chronic Qualifiers: Hypertension type: essential hypertension Qualified Code(s): I10 - Essential (primary) hypertension (4) Dyslipidemia Code(s): E78.5 - HYPERLIPIDEMIA, UNSPECIFIED Status: Chronic - Plan is on plavix, lipitor, procardia xl and hctz MRI shows right Internal capsule and left parieto-occipital infarct he has been dragging his left LE from 1 yr due to RA per mother, but his left UE weakness and slurred speech is new hemo/neurostable had Linq monitor to snf today if paper work is completed by family aspiration precautions, encourage po intake with assistance please see dc summary dictated on 01/04/2020
[2020-01-05 11:48] VITALS: TEMP 98.3
[2020-01-05] MEDS ORDERED: Bisacodyl 10 MG SUPP PR PRN (12:46)
[2020-01-05] MEDS ORDERED: Fleet Enema 133 ML BOT PR SCH (13:00)
[2020-01-05 15:56] VITALS: BP 150/83
--- NOTE | 2020-01-05 19:30 | CCL ---
DATE: 01/03/20 PROCEDURE: Insertion of permanent environmental monitoring technician Linq, model MDP Linq 11, serial #[id number]. COMPARISON: None. DESCRIPTION OF PROCEDURE: The patient was taken to the procedural area, prepped and draped in the usual sterile fashion. Lidoca ine was utilized for local anesthesia. Incision was made at the fourth intercostal space in left pect oral region utilizing a skin puncture tool. The insertable environmental monitoring technician Linq was inserted through the puncture site with the Linq insertion tool. Dermabond and steri-strips were applied to the site i n the usual sterile fashion. RECOMMENDATIONS: Continue monitoring for thromboembolic arrhythmias.
--- NOTE | 2020-01-06 09:59 | EKG ---
Test Reason : Blood Pressure : / mmHG Vent. Rate : 086 BPM Atrial Rate : 086 BPM P-R Int : 140 ms QRS Dur : 096 ms QT Int : 398 ms P-R-T Axes : 071 070 053 degrees QTc Int : 476 ms Poor data quality, interpretation may be adversely affected Normal sinus rhythm Possible Left atrial enlargement Borderline ECG Confirmed by SOCORRO ENGLISH ([id number]), editorial writer TERRY GUNDERSON ([id number]) on 01/06/2020 9:59:10 AM Referred By: Confirmed By:SOCORRO ENGLISH
== END 2020-01-05 17:04 | DRG 41 ==
LOC: ERS 21:33 → 2SE 22:15 → OBSVTOIN 01-01 10:33
PROVIDERS: ADMIT Internal Medicine; ATTEND Internal Medicine
PROC: 0JH632Z Insertion of Monitoring Device into Chest Subcutaneous Tissue and Fascia, Percutaneous Approach (ICD-10-PCS; principal; 2020-01-03)
DX: I63.81 Other cerebral infarction due to occlusion or stenosis of small artery (principal); G81.94 Hemiplegia, unspecified affecting left nondominant side; M06.9 Rheumatoid arthritis, unspecified; I10 Essential (primary) hypertension; E78.5 Hyperlipidemia, unspecified; R47.81 Slurred speech; R29.810 Facial weakness; R29.713 NIHSS score 13; R13.10 Dysphagia, unspecified; R47.1 Dysarthria and anarthria; F17.210 Nicotine dependence, cigarettes, uncomplicated; R40.2362 Coma scale, best motor response, obeys commands, at arrival to emergency department; R40.2142 Coma scale, eyes open, spontaneous, at arrival to emergency department; R40.2242 Coma scale, best verbal response, confused conversation, at arrival to emergency department; Z79.82 Long term (current) use of aspirin; Z79.899 Other long term (current) drug therapy
CPT/HCPCS: 33285; 36415; 70551; 71045; 80053; 80061; 84443; 84484; 85025; 93005; 93306; 94760; C1764; J1650; J2060; J2270

== ENCOUNTER 2020-04-02 16:13 | Observation (INO) | payer MEDICARE, MEDICAID, OTHER ==
[2020-04-02] MEDS ORDERED: HYDROcodone/Acetaminophen 5/325 mg Tablet ONE (17:00)
[2020-04-02 17:03] LABS: #Basophils 0.1 thou/uL (0.0-0.2); #Lymphocytes 1.4 thou/uL (1.20-3.40); #Monocytes 0.3 thou/uL (0.11-0.59); %Basophils 0.9 % (0.0-1.0); %Eosinophils 0.2 % (0.0-10.0); %Lymphocytes 24.1 % (21.0-51.0); %Monocytes 5.6 % (0.0-10.0); %Neutrophils 69.2 % (42.0-75.0); Hemoglobin 14.4 g/dL (14.0-18.0); Mean Corpuscular HGB CONC 33.8 g/dL (32.0-36.0); Mean Corpuscular Hemoglobin 30.3 pg (27.0-31.0); Mean Corpuscular Volume 89.5 fL (78.0-98.0); Mean Platelet Volume 8.8 fL (7.4-10.4); Platelet Count 230 thou/uL (130-400); RBC Distribution Width 13.7 % (11.5-14.5); Red Blood Cell (RBC) Count 4.76 mill/uL (4.70-6.10); White Blood Cell (WBC) Count 5.8 thou/uL (4.8-10.8)
--- NOTE | 2020-04-02 17:15 | RAD ---
XR Chest 1 View Portable HISTORY: Left-sided chest pain. COMPARISON: 01/03/2020 exam. FINDINGS: Heart size and mediastinum are within normal limits. No definite infiltrative lung changes seen. An enteric nodularity just lateral to the left hilum is slightly more prominent than on the previous exam this may just be technique related and may be vessels but I cannot exclude the presence of a small mass. IMPRESSION: Questionable small mass in the left parahilar region. CT would be recommended for further assessment.
[2020-04-02 17:42] LABS: ALT (SGPT) 24 U/L (8-55); AST (SGOT) 29 U/L (5-34); Albumin 4.2 g/dL (3.4-4.8); Alkaline Phosphatase 99 U/L (40-110); Anion Gap 15 mmol/L (10-20); BUN (Urea Nitrogen) 11 mg/dL (8.4-25.7); Bilirubin, Total 0.4 mg/dL (0.2-1.2); Calc. Creatinine Clearance 0 mL/min (70-130); Calcium 9.5 mg/dL (7.8-10.44); Carbon Dioxide 26 mmol/L (23-31); Chloride 90 mmol/L (98-107); Estimated GFR-MDRD Greater than 90; Globulin 4.3 g/dL (2.4-3.5); Glucose 94 mg/dL (80-115); Lipase 27 U/L (8-78); Potassium 3.4 mmol/L (3.5-5.1); Protein, Total 8.5 g/dL (5.8-8.1); Sodium 128 mmol/L (136-145)
[2020-04-02 18:07] LABS: CKMB 7.4 ng/mL (0-6.6)
[2020-04-02] MEDS ORDERED: Aspirin 325 MG TAB ONE (19:04)
--- NOTE | 2020-04-02 19:11 | PDOC.FPRHP ---
- History of Present Illness Chief Complaint: Chest Pain History of Present Illness: 69 y/o M reports to ED with chest pain. Pt is a [facility] resident who was c/ o L rib pain. It was found that his [facility]mate at his [facility] was COVID +. He had no other complaints and was a poor historian. Unsure of what his baseline status is. ED Course: Pt given 324mg ASA & 5/325 [place]. Labs: CK = 7.4, Tropoinin 0.043. EKG showed: normal sinus rhythm with LVH. CXR showed questionable mass in perihilar region. - Allergies/Adverse Reactions Allergies Allergy/AdvReac Type Severity Reaction Status Date / Time No Known Drug Allergies Allergy Verified 04/03/20 00:23 - Home Medications Medication Instructions Recorded Confirmed Type Oxycodone Myristate [Xtampza ER] 13.5 mg PO BID 01/01/20 04/03/20 History Atorvastatin Calcium [Lipitor] 80 mg PO HS #30 tab 01/04/20 04/03/20 Rx Clopidogrel Bisulfate [Plavix] 75 mg PO 0900 #30 tab 01/04/20 04/03/20 Rx Sennosides/Docusate Sodium 2 tab PO BID #60 tab 01/04/20 04/03/20 Rx [Senokot S] Hydrochlorothiazide 25 mg PO DAILY #30 tab 01/05/20 04/03/20 Rx Ipratropium/Albuterol Sulfate 3 ml NEB TID #30 neb 01/05/20 04/03/20 Rx [Duoneb] Amlodipine Besylate [amLODIPine 5 mg PO DAILY 04/03/20 04/03/20 History Besylate] Omeprazole 20 mg PO HS 04/03/20 04/03/20 History - History PMHx: -CVA, December 2019 -HTN -HLD -RA PSHx: -Jaw Surgery FHx: -Mother: HTN Social: [facility] in [facility] admits to occasional ETOH use, no drug use, smoker 2 cig/day for 5-6 years - Review of Systems General: denies: fever/chills Respiratory: denies: cough, congestion Cardiovascular: reports: chest pain. denies: palpitation, edema Gastrointestinal: denies: nausea, vomiting, diarrhea, constipation - Vital signs BP: 122/75, HR 80, RR 15, 98.5 Temp, 98% O2 - Physical Exam Constitutional: NAD HEENT: normocephalic and atraumatic, conjunctiva clear Neck: supple, trachea midline -Chest: mild tenderness over left ribs Heart: RRR, normal S1/S2, no edema Lungs: CTAB, no respiratory distress, no wheezing Abdomen: soft, non-tender, bowel sounds present, no masses/distention -Abdomen: scaphoid -Musculoskeletal: hands with Boutonierre and swan neck deformities; swelling over PIP and MCP joints ; ulnar deviation present -Neurological: LUE contracture; unable to move; LLE strength 3/5 Skin: no rash/lesions Psychiatric: normal mood and affect FMR H&P: Results - Labs Result Diagrams: 04/02/20 16:25 04/03/20 01:51 Lab results: WBC 5.8 thou/uL (4.8-10.8) 04/02/20 16:25 Hgb 14.4 g/dL (14.0-18.0) 04/02/20 16:25 Hct 42.6 % (42.0-52.0) 04/02/20 16:25 MCV 89.5 fL (78.0-98.0) 04/02/20 16:25 Plt Count 230 thou/uL (130-400) 04/02/20 16:25 Neutrophils % 69.2 % (42.0-75.0) 04/02/20 16:25 Sodium 128 mmol/L (136-145) L 04/02/20 16:25 Potassium 3.4 mmol/L (3.5-5.1) L 04/02/20 16:25 Chloride 90 mmol/L (98-107) L 04/02/20 16:25 Carbon Dioxide 26 mmol/L (23-31) 04/02/20 16:25 BUN 11 mg/dL (8.4-25.7) 04/02/20 16:25 Creatinine 0.77 mg/dL (0.7-1.3) 04/02/20 16:25 Glucose 94 mg/dL (80-115) 04/02/20 16:25 Calcium 9.5 mg/dL (7.8-10.44) 04/02/20 16:25 Total Bilirubin 0.4 mg/dL (0.2-1.2) 04/02/20 16:25 AST 29 U/L (5-34) 04/02/20 16:25 ALT 24 U/L (8-55) 04/02/20 16:25 Alkaline Phosphatase 99 U/L (40-110) 04/02/20 16:25 CK-MB (CK-2) 7.4 ng/mL (0-6.6) H* 04/02/20 16:25 Serum Total Protein 8.5 g/dL (5.8-8.1) H 04/02/20 16:25 Albumin 4.2 g/dL (3.4-4.8) 04/02/20 16:25 Lipase 27 U/L (8-78) 04/02/20 16:25 - Radiology Interpretation Chest x-ray Status: image reviewed by me, report reviewed by me (CXR showed perihilar mass, CT recommended) FMR H&P: A/P - Problem List (1) Dyslipidemia Current Visit: No Status: Chronic Code(s): E78.5 - HYPERLIPIDEMIA, UNSPECIFIED (2) HTN (hypertension) Current Visit: No Status: Chronic Code(s): I10 - ESSENTIAL (PRIMARY) HYPERTENSION Qualifiers: (3) COVID-19 Current Visit: Yes Status: Acute Code(s): U07.1 - COVID-19 (4) History of CVA (cerebrovascular accident) Current Visit: Yes Status: Chronic Code(s): Z86.73 - PRSNL HX OF TIA (TIA), AND CEREB INFRC W/O RESID DEFICITS (5) Chest pain Current Visit: Yes Status: Acute Code(s): R07.9 - CHEST PAIN, UNSPECIFIED (6) Hyponatremia Current Visit: Yes Status: Acute Code(s): E87.1 - HYPO-OSMOLALITY AND HYPONATREMIA (7) 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 msk -EKG: normal sinus with LVH -troponin trend: 0.043, 0.049, 0.046 -TSH pend -mag @ 1.5, repleated, phos pend #Hypokalemia -K 2.9, repleted -repeat BMP in PM ## COVID Positive -d-dimer, CRP, fibrinogen, ferritin, LDH ordered ## Hyponatremia -Na 128 -Urine Na, Osm -repeat BMP ## Hilar mass -noted on previous CXR in November -can be w/u with outpatient CT Chest ## Hx of CVA -residual L sided weakness -home med plavix ## HTN -home med amlodipine and HCTZ ## HLD -home medication atorvastatin ## Rheumatoid Arthritis -not on any biologics VTE PPX GI PPX Diet: HH Code: Full PCP: Jesse Dispo: on observation, expected length of stay < 48 hours. will have to f/u with PCP about baseline status as well as the w/u perihilar mass, whether can be worked up outpatient. FMR H&P: Upper Level - Plan Date/Time: 04/02/201909 I, Shantal Arriaga, have evaluated this patient and agree with findings/plan as outlined by internet sales manager resident. Pertinent changes/additions are listed here. 69YO AAM w/ a PMH notable for a prior CVA w/ residual L-sided hemiparesis, HLD & RA who was [facility] for reported L-sided rib pain. Patient denied any CP at the time of the exam. He in fact had no complaints. However, given his history a troponin level was obtained which was elevated at 0.043. In addition, per the [facility], the patient's roommate recently tested + for COVID-19 so a rapid swab was obtained which was positive. Pt given 324mg ASA & 5/325 [place] in the ER. Patient was in NAD at time of exam but was slightly altered. Oriented to person & place but confused regarding situation and date. VS were WNLs including maintaining adequate sats on RA. Exam was notable for L-sided hemiparesis & bony deformities in both hands c/w RA. EKG notable for normal sinus rhythm & LVH. CXR showed questionable mass in perihilar region. Other notable laboratories included a Na level of 128 & K of 3.4. Patient will be admitted to COVID-19 unit for continued trending of troponins & supportive care PRN for COVID-19 infection. Will also obtain baseline COVID labs including a D-dimer, LDH, CRP, fibrinogen & ferritin. Regarding his AMS, will obtain a UA, serum osmolality, urine Na & urine osmolality. Will also check a TSH, Mg & phos. Will contain PCP regarding baseline mentation in AM as patient may have some mild underlying dementia as well. Lastly, regarding his mass noted on CXR, similar findings were noted on December of this year. Will again touch base with PCP in AM for recs regarding obtaining a CT now during this admission vs. later as an outpatient since patient is currently infected with COVID-19. Will continue home meds for chronic conditions Addendum - Attending - Attending Attestation Date/Time: 04/03/20 0638 I personally evaluated the patient and discussed the management with Dr. Pastrana/ Bart on 04/02/2020 I agree with the History, Examination, Assessment and Plan documented above with any addition or exceptions noted below - 69YO AAM w/ a PMH notable for a prior CVA w/ residual L-sided hemiparesis, HLD & RA who was [facility] from the [facility] for reported L-sided rib pain. Patient denied any CP at the time of the exam. He in fact had no complaints. However, given his history a troponin level was obtained which was elevated at 0.043. In addition, per the [facility], the patient's roommate recently tested + for COVID-19 so a rapid swab was obtained which was positive. PMH/PSH/Meds/SH reviewed and agree with resident's documentation. Afebrile VSS Exam repeated by me and agree with resident's findings. Labs: WBC=5.8, H/H=14.4/42.6, Mhf=521, Vy=492, K=3.4, Cl=90 , CO2=26, BUN/Cr=11/0.77, Gluc=94, Trop=0.043, rapid COVID (+), CXR- possible small mass in left perihilar region; no infiltrates. EKG- NSR; no ST changes. A/ P: 1) Atypical chest pain- Will place in obs; check serial cardiac enzymes 2) Elevated troponin- possibly secondary to COVID; continue to trend. 3) AMS- patient only oriented ti self; uncertain what his baseline is; will contact PCP for further information. 4) COVID (+)- will obtain baseline inflammatory markers ; no O2 requirement at this time; continue to monitor.
[2020-04-02 19:58] LABS: Troponin I 0.049 ng/mL (< 0.028)
[2020-04-02] MEDS ORDERED: Ondansetron PF 4 MG/2 ML Vial IVP PRN (21:14)
[2020-04-02] MEDS ORDERED: Ondansetron ODT 4 MG TAB PO PRN (21:14)
[2020-04-02 23:02] LABS: Troponin I 0.046 ng/mL (< 0.028)
[2020-04-03 00:03] VITALS: BMI 18.5
[2020-04-03] MEDS ORDERED: oxyCODONE ER 10 MG TAB PO SCH ×2 (01:00→09:00)
[2020-04-03 02:11] LABS: Clarity Clear (Clear); Leukocyte Negative Leu/uL (Negative); Nitrite Negative (Negative); Protein, Urine (Dipstick) Negative (Neg-Trace); Specific Gravity, Urine 1.016 (1.002-1.036)
[2020-04-03 02:12] LABS: Bacteria/HPF None Seen HPF (None Seen); Bilirubin Negative (Negative); Blood, Urine Negative (Negative); Glucose, Urine (Dipstick) Normal (Negative); Ketone, Urine Negative (Negative); RBC/HPF 0-3 HPF (0-3); Urobilinogen Normal mg/dL (Less than 2); WBC/HPF 0-3 HPF (0-3)
[2020-04-03 02:13] LABS: Urine Culture Reflex No No
[2020-04-03 02:37] LABS: D-Dimer Test 1.76 *mcg/mL (0.27-0.43)
[2020-04-03 02:39] LABS: Phosphorus 2.6 mg/dL (2.3-4.7)
[2020-04-03 02:41] LABS: CRP (Inflammatory) 2.05 mg/dL (= or < 0.5); Magnesium 1.5 mg/dL (1.6-2.6)
[2020-04-03 02:47] LABS: ALT (SGPT) 19 U/L (8-55); AST (SGOT) 25 U/L (5-34); Albumin 3.6 g/dL (3.4-4.8); Alkaline Phosphatase 85 U/L (40-110); Anion Gap 13 mmol/L (10-20); BUN (Urea Nitrogen) 13 mg/dL (8.4-25.7); Bilirubin, Total 0.4 mg/dL (0.2-1.2); Calc. Creatinine Clearance 81 mL/min (70-130); Carbon Dioxide 26 mmol/L (23-31); Chloride 93 mmol/L (98-107); Estimated GFR-MDRD Greater than 90; Globulin 3.6 g/dL (2.4-3.5); Glucose 144 mg/dL (80-115); Protein, Total 7.2 g/dL (5.8-8.1); Sodium 129 mmol/L (136-145)
[2020-04-03 02:50] LABS: Potassium 2.9 mmol/L (3.5-5.1)
[2020-04-03 02:54] LABS: Thyroid Stimulating Hormone 1.8071 uIU/mL (0.35-4.94)
[2020-04-03] MEDS ORDERED: Magnesium 2 GM/50 ML 1 GM in Premix Bag 1 BAG IVPB SCH (03:15)
[2020-04-03] MEDS ORDERED: Docusate Sodium 100 MG/10 ML UDCUP PO PRN (04:47)
[2020-04-03 05:03] LABS: Ferritin 637.82 ng/mL (22-322)
[2020-04-03] MEDS: Acetaminophen 325 MG TAB PO PRN (05:30)
--- NOTE | 2020-04-03 06:33 | PDOC.FM ---
- Subjective Subjective: Doing well this morning. States his pain has resolved. He is confused, at baseline, and does not know where he lives. He is oriented to person and that he is in the hospital. - Objective MAR Reviewed: Yes Vital Signs & Weight: Vital Signs (12 hours) Temp Pulse Resp BP BP Pulse Ox 04/03/20 04:36 98.5 F 89 13 103/66 95 04/03/20 01:03 95 04/02/20 23:51 97.5 F L 85 19 133/76 97 Weight Weight 61.961 kg Result Diagrams: 04/02/20 16:25 04/03/20 14:25 Phys Exam - Physical Examination Constitutional: NAD HEENT: PERRLA, moist MMs Neck: no JVD, supple Respiratory: no wheezing, no rales, no rhonchi, clear to auscultation bilateral Cardiovascular: RRR, no significant murmur Gastrointestinal: soft, non-tender Musculoskeletal: no edema Neurological: non-focal, moves all 4 limbs Psychiatric: normal affect Deviation from normal: A&O x 1 (Person) unable to state place, other than hospital. 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 - OTHER NONSPECIFIC ABNORMAL FINDING OF LUNG FIELD Status: Chronic (5) History of CVA (cerebrovascular accident) Code(s): Z86.73 - PRSNL HX OF TIA (TIA), AND CEREB INFRC W/O RESID DEFICITS Status: Chronic (6) Rheumatoid arthritis Code(s): M06.9 - RHEUMATOID ARTHRITIS, UNSPECIFIED Status: Chronic (7) Acute CVA (cerebrovascular accident) Code(s): I63.9 - CEREBRAL INFARCTION, UNSPECIFIED Status: Acute (8) Dyslipidemia Code(s): E78.5 - HYPERLIPIDEMIA, UNSPECIFIED Status: Chronic (9) H/O rheumatoid arthritis Code(s): Z87.39 - PERSONAL HISTORY OF DISEASES OF THE MS SYS AND CONN TISS Status: Chronic (10) HTN (hypertension) Code(s): I10 - ESSENTIAL (PRIMARY) HYPERTENSION Status: Chronic Qualifiers: - Plan Plan: Atypical Chest Pain, musculoskeletal vs cardiac. -EKG: normal sinus with LVH -troponin trend: 0.043, 0.049, 0.046 -TSH 1.8071 Hypokalemia -K 2.9 -repeat BMP in PM -replaced orally. -patient is on HCTZ, will add daily K supplement. COVID-19 Positive -D Dimer 1.76 -LDH 165 -CRP 2.05 -Ferritin 637.82 -AST/ALT -No acute respiratory distress, satting 95% on room air. Hyponatremia -Na 128 -Urine Na, Osm -repeat BMP Hilar mass -noted on previous CXR in November -can be worked up with outpatient CT Chest Hx of CVA -residual L sided weakness -Continue Plavix HTN -continue Amlodipine and HCTZ HLD -continue Atorvastatin Rheumatoid Arthritis -not on any biologics VTE PPX: Lovenox GI PPX: Not indicated. Diet: Code: Full PCP: Jesse Dispo: Observation. Addendum - Attending - Attending Attestation Date/Time: 04/03/20 1610 I personally evaluated the patient and discussed the management with Dr. Lawson. I agree with the History, Examination, Assessment and Plan documented above with any addition or exceptions noted below. Potassium repleated. Na low but not concerning. d/c back to [facility] if repeat BMP show K+ WNL. Will coordinate care with PCP at [place]. He is asymptomatic from a COVID standpoint.
[2020-04-03] MEDS: Enoxaparin Sodium 40 MG/0.4 ML SYRINGE SC SCH (07:51)
[2020-04-03] MEDS: Potassium Chloride 20 MEQ TAB PO SCH ×2 (07:53→17:57)
[2020-04-03] MEDS: Clopidogrel Bisulfate 75 MG TAB PO SCH (07:53)
[2020-04-03] MEDS: NIFEdipine XL 60 MG TAB PO SCH (07:54)
[2020-04-03] MEDS ORDERED: Potassium Chloride 20 MEQ TAB PO SCH ×2 (08:00→11:45)
[2020-04-03] MEDS ORDERED: Hydrochlorothiazide 25 MG TAB PO SCH (09:00)
[2020-04-03] MEDS ORDERED: Potassium Chloride 20 MEQ in Premix Bag 1 BAG IVPB SCH (09:45)
[2020-04-03] MEDS ORDERED: Morphine 4 MG/ML VIAL ONE (13:00)
[2020-04-03] MEDS ORDERED: Morphine 2 MG/ML VIAL SLOW IVP SCH (13:15)
[2020-04-03 14:52] LABS: Anion Gap 14 mmol/L (10-20); BUN (Urea Nitrogen) 11 mg/dL (8.4-25.7); Calc. Creatinine Clearance 84 mL/min (70-130); Calcium 9.1 mg/dL (7.8-10.44); Carbon Dioxide 24 mmol/L (23-31); Chloride 94 mmol/L (98-107); Estimated GFR-MDRD Greater than 90; Glucose 111 mg/dL (80-115); Potassium 3.8 mmol/L (3.5-5.1); Sodium 128 mmol/L (136-145)
[2020-04-03 16:46] LABS: Anion Gap 12 mmol/L (10-20); BUN (Urea Nitrogen) 10 mg/dL (8.4-25.7); Calc. Creatinine Clearance 82 mL/min (70-130); Calcium 9.5 mg/dL (7.8-10.44); Carbon Dioxide 29 mmol/L (23-31); Chloride 94 mmol/L (98-107); Estimated GFR-MDRD Greater than 90; Glucose 103 mg/dL (80-115); Potassium 3.9 mmol/L (3.5-5.1); Sodium 131 mmol/L (136-145)
[2020-04-03] MEDS ORDERED: Atorvastatin Calcium 40 MG TAB PO SCH (21:00)
[2020-04-03] MEDS: Morphine ER 15 MG TAB PO SCH (21:35)
[2020-04-04] MEDS: Potassium Chloride 20 MEQ TAB PO SCH (08:26)
[2020-04-04] MEDS: Enoxaparin Sodium 40 MG/0.4 ML SYRINGE SC SCH (08:27)
[2020-04-04] MEDS: Morphine ER 15 MG TAB PO SCH (08:27)
[2020-04-04] MEDS: Clopidogrel Bisulfate 75 MG TAB PO SCH (08:28)
[2020-04-04] MEDS: NIFEdipine XL 60 MG TAB PO SCH (08:28)
[2020-04-04 08:31] LABS: Anion Gap 14 mmol/L (10-20); BUN (Urea Nitrogen) 8 mg/dL (8.4-25.7); Calc. Creatinine Clearance 83 mL/min (70-130); Calcium 9.4 mg/dL (7.8-10.44); Carbon Dioxide 25 mmol/L (23-31); Chloride 96 mmol/L (98-107); Estimated GFR-MDRD Greater than 90; Glucose 95 mg/dL (80-115); Potassium 3.7 mmol/L (3.5-5.1); Sodium 131 mmol/L (136-145)
[2020-04-04 08:54] VITALS: BP 116/66; TEMP 98.7
[2020-04-04] MEDS ORDERED: Polyethylene Glycol 3350 17 GM Packet PO SCH (09:00)
--- NOTE | 2020-04-04 09:12 | PDOC.FM ---
- Subjective Subjective: Doing well this morning. Still complains of mild abdominal pain. Has not had bowel movement. - Objective MAR Reviewed: Yes Vital Signs & Weight: Vital Signs (12 hours) Temp Pulse Resp BP BP Pulse Ox 04/04/20 08:53 98.7 F 86 18 116/66 99 04/04/20 08:28 101 H 150/87 H Weight Admit Weight 61.961 kg Weight 61.961 kg I&O: 04/03/20 04/04/20 04/05/20 06:59 06:59 06:59 Intake Total 1100 240 Output Total 300 Balance 800 240 Result Diagrams: 04/02/20 16:25 04/04/20 07:58 Phys Exam - Physical Examination Constitutional: NAD HEENT: PERRLA, moist MMs Neck: supple Respiratory: no wheezing, no rales, no rhonchi, clear to auscultation bilateral Cardiovascular: RRR, no significant murmur Gastrointestinal: soft mildly ttp Musculoskeletal: no edema Neurological: non-focal, moves all 4 limbs Psychiatric: normal affect, A&O x 3 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 - OTHER NONSPECIFIC ABNORMAL FINDING OF LUNG FIELD Status: Chronic (5) History of CVA (cerebrovascular accident) Code(s): Z86.73 - PRSNL HX OF TIA (TIA), AND CEREB INFRC W/O RESID DEFICITS Status: Chronic (6) Rheumatoid arthritis Code(s): M06.9 - RHEUMATOID ARTHRITIS, UNSPECIFIED Status: Chronic (7) Acute CVA (cerebrovascular accident) Code(s): I63.9 - CEREBRAL INFARCTION, UNSPECIFIED Status: Acute (8) Dyslipidemia Code(s): E78.5 - HYPERLIPIDEMIA, UNSPECIFIED Status: Chronic (9) H/O rheumatoid arthritis Code(s): Z87.39 - PERSONAL HISTORY OF DISEASES OF THE MS SYS AND CONN TISS Status: Chronic (10) HTN (hypertension) Code(s): I10 - ESSENTIAL (PRIMARY) HYPERTENSION Status: Chronic Qualifiers: - Plan Plan: Atypical Chest Pain, musculoskeletal vs cardiac, resolved. Hypokalemia, resolved -patient is on HCTZ, will add daily K supplement. COVID-19 Positive -No acute respiratory distress, satting upper 90s on room air. Hyponatremia -Na 128 -High urine sodium and high urine osmolality. Low BUN. suspect SIADH, especially with CXR findings. Hilar mass -noted on previous CXR in November -can be worked up with outpatient CT Chest Hx of CVA -residual L sided weakness -Continue Plavix HTN -continue Amlodipine and HCTZ HLD -continue Atorvastatin Rheumatoid Arthritis -not on any biologics VTE PPX: Lovenox GI PPX: Not indicated. Diet: HH Code: Full PCP: Jesse Dispo: Observation. Addendum - Attending - Attending Attestation Date/Time: 04/04/20 5202 I personally evaluated the patient and discussed the management with Dr. Lawson. I agree with the History, Examination, Assessment and Plan documented above with any addition or exceptions noted below. HCTZ stopped. K WNL. D/C to [facility].
[2020-04-04] MEDS ORDERED: Senokot S 8.6-50 MG TAB PO SCH ×2 (10:00→21:00)
[2020-04-04] MEDS: Acetaminophen 325 MG TAB PO PRN (12:28)
--- NOTE | 2020-04-05 00:50 | DIS ---
DATE OF ADMISSION: 04/02/2020 DATE OF DISCHARGE: 04/04/2020 RESIDENT: Kristie Lawosn MD. ADMITTING ATTENDING: Irasema Rg MD. DISCHARGE ATTENDING: Willian Everett MD. CONSULTS: None. PROCEDURES: None. PRIMARY DIAGNOSIS: Atypical chest pain. SECONDARY DIAGNOSES: 1. Hypokalemia. 2. COVID-19 positive. Hyponatremia. 3. Hilar mass. 4. History of cerebrovascular incident. 5. Hypertension. 6. Hyperlipidemia. 7. Rheumatoid arthritis. DISCHARGE MEDICATIONS: 1. Amlodipine. 2. Omeprazole. 3. Oxycodone myristate. 4. Atorvastatin. 5. Plavix. 6. Hydrochlorothiazide. 7. DuoNebs. 8. Sennosides. 9. Docusate. NEW MEDICATION: Potassium chloride 20 mEq daily. DISCONTINUED MEDICATIONS: None. HISTORY OF PRESENT ILLNESS/HOSPITAL COURSE: Mr. Vito Gomes is a 69-year-old male who presented to the ER complaining of chest pain. He lives in the long-term and was complaining to his nurse that he was having left-sided rib pain, abdominal pain, and chest pain. Upon arrival to the ED, he was screened for COVID and his long-term roommate with COVID positive. Therefore, he was tested. He also was positive. Chest x-ray was read as a questionable small mass in the left parahilar region. LABORATORY DATA: On laboratory exams, his CBC was normal. His D-dimer was 1.76, likely secondary to COVID. His potassium was markedly low at 128. Urine osmolality and sodium were obtained. Sodium was 102. The osmolality was 520. This was consistent with potentially SIADH in light of the mass in his lung as well and could be followed up outpatient should he desire. Patient's mental status is not alert and oriented x3, however, and he is not aware of his medical problem. The patient was evaluated for chest pain and his troponins trended downward and his chest pain was resolved. His abdominal pain seems to be related to constipation as he has had not had a bowel movement in several days and is on long-acting opioid pain management. He was given senna and MiraLAX to assist with a bowel movement prior to being discharged home. DISPOSITION: Guarded. DISCHARGE INSTRUCTIONS: Location: [facility]. Diet: Heart healthy. Activity: Ad margoth. Followup: Follow up with primary care physician upon discharge. Job ID: [id number]
[2020-04-05] MEDS ORDERED: Polyethylene Glycol 3350 17 GM Packet PO SCH (09:00)
== END 2020-04-04 13:16 ==
LOC: ERS 16:13 → 2SW 18:06
PROVIDERS: ADMIT Family Medicine; ATTEND Family Medicine
DX: U07.1 COVID-19 (principal); R07.89 Other chest pain; E87.6 Hypokalemia; E87.1 Hypo-osmolality and hyponatremia; R91.8 Other nonspecific abnormal finding of lung field; I69.354 Hemiplegia and hemiparesis following cerebral infarction affecting left non-dominant side; I10 Essential (primary) hypertension; E78.5 Hyperlipidemia, unspecified; M06.9 Rheumatoid arthritis, unspecified; F17.210 Nicotine dependence, cigarettes, uncomplicated; K21.9 Gastro-esophageal reflux disease without esophagitis; Z79.02 Long term (current) use of antithrombotics/antiplatelets; Z79.899 Other long term (current) drug therapy
CPT/HCPCS: 71045; 80048 ×2; 80053 ×2; 81001; 82553; 82728; 83615; 83690; 83735; 83930; 83935; 84100; 84300; 84443; 84484 ×2; 85025; 85379; 85384; 86140; 93005; 96372 ×2; 96374; 97139 ×5; 97530; 99285; G0378 ×3; U0002; 36415; J1650; J2270; J3475; J3480; J3490

== ENCOUNTER 2020-05-10 08:14 | Outpatient (CLI) | payer MEDICARE, MEDICAID ==
--- NOTE | 2020-05-10 10:13 | CT ---
EXAM: CTA Angio Abd Pelvis W WO Con PROVIDED CLINICAL HISTORY: Suggestion of abdominal aortic aneurysm on recent CT thorax. CT abdomen and pelvis recommended. COMPARISON: CT thorax on 05/06/2020 FINDINGS: There is bibasilar volume loss present. The heart is mildly enlarged. There is limited evaluation of the parenchymal organs due to phase of imaging and patient's arms down by the side resulting in artifact through the upper abdomen. However, the liver, spleen, pancreas, bilateral adrenal glands, and kidneys demonstrate a grossly normal CT appearance for arterial phase o f imaging. Urinary bladder has a normal CT appearance. Vascular calcifications are seen throughout the abdominal aorta and involving the iliac arteries. Foc al area of eccentric atherosclerotic plaque is seen involving the proximal left common iliac artery with the luminal narrowing, and the degree of luminal narrowing approaches 50%. The bilateral interna l and external iliac arteries are patent. There is mild atherosclerotic irregularity with mild narrowing involving each common femoral artery. Most proximal superficial femoral and profunda femora l arteries are patent, but there is mild atherosclerotic plaque seen involving the most proximal right profunda femoral artery. There is suggestion of an infrarenal abdominal aortic aneurysm measuring approximately 3 cm. However, given multiple adjacent unopacified structures including loops of bowel which abut the abdominal aorta, the measurement of the abdominal aortic aneurysm is difficult to accurately determine. The celiac and superior mesenteric arteries are patent. The origin of the EVANGELISTA is not well delineated, and there is suggestion of severe narrowing involving the origin of the EVANGELISTA. Two patent right and single patent left renal arteries are visualized. There is a moderately large amount of retained fecal material seen throughout the colon much greater involving the rectum, and the rectum is distended measuring 8.1 cm in diameter. Minimal stranding is seen in a presacral location. Developing stercoral colitis is a possibility. No free fluid or fluid collection is seen on this exam. IMPRESSION: 1. Infrarenal abdominal aortic aneurysm with peripheral thrombus. Exact measurement is difficult to d etermine due to similar density between the peripherally thrombosed portion of the aneurysm and adjacent unopacified structures including loops of bowel which are immediately adjacent to the abdomi nal aorta without defined fat plane visualized. The aneurysm measures approximately 3 cm. 2. Patent celiac and superior mesenteric arteries with suggested severe narrowing at the origin of th e EVANGELISTA. 3. Mild cardiomegaly. 4. Atherosclerotic plaque resulting in at least 50% degree of narrowing involving the proximal left c ommon iliac artery with mild narrowing involving each common femoral artery due to eccentric atherosclerotic plaque and calcification. 5. Moderately large amount retained fecal material seen throughout the colon suggesting constipation with prominent distention of the rectum which measures 8 cm in diameter. There is adjacent minimal inflammatory stranding. Developing stercoral colitis could not be excluded.
[2020-05-10] MEDS ORDERED: Iopamidol 370 76% 100 ML VIAL ONE (14:12)
== END 2020-05-10 08:15 | disposition home or self-care (01) ==
LOC: CT 08:14
PROVIDERS: ATTEND Family Medicine
DX: I71.4 Abdominal aortic aneurysm, without rupture (principal); I51.7 Cardiomegaly; K59.00 Constipation, unspecified
CPT/HCPCS: 74174; Q9967